=== PATIENT | female | born 1965 | race Caucasian/White ===

== ENCOUNTER 2017-09-28 13:45 | Emergency (ER) | payer OTHER ==
[~2017-09-28] VITALS: Ht 175.3 cm; Wt 59.9 kg
[2017-09-28] MEDS ORDERED: VALSARTAN160 MG (14:29)
[2017-09-28] MEDS ORDERED: ALPRAZOLAM0.25 MG PO (17:36)
== END 2017-09-28 17:41 | disposition home or self-care (01) ==
LOC: ER 13:45
DX: H11.32 Conjunctival hemorrhage, left eye (principal); I10 Essential (primary) hypertension; F06.4 Anxiety disorder due to known physiological condition